=== PATIENT | female | born 1970 | race Caucasian/White ===

== ENCOUNTER 2019-02-23 17:02 | Emergency (ER) | payer MEDICAID ==
[~2019-02-23] VITALS: Ht 157.5 cm; Wt 91.0 kg
[2019-02-23 17:17] VITALS: BP 137/69
[2019-02-23] MEDS ORDERED: IBUPROFEN 200 MG TABLET ONE ×2 (17:56→17:57)
[2019-02-23] MEDS: IBUPROFEN 200 MG TABLET PO ONE (17:59)
--- NOTE | 2019-02-23 19:02 | NUR ---
BREAK RN: [facility] CALLED BACK IN [facility] TO CRUTCHES NEEDED FOR PT. AWAITING CRUTCHES FOR D/C.
== END 2019-02-23 19:31 | disposition home or self-care (01) ==
LOC: ED 19:25
DX: M19.071 Primary osteoarthritis, right ankle and foot (principal); M77.31 Calcaneal spur, right foot; F17.200 Nicotine dependence, unspecified, uncomplicated
CPT/HCPCS: 99283

== ENCOUNTER 2019-03-07 16:58 | Emergency (ER) | payer MEDICAID ==
[~2019-03-07] VITALS: Ht 157.5 cm; Wt 90.2 kg
[2019-03-07 17:26] VITALS: BP 150/83
[2019-03-07] MEDS ORDERED: KEPPRA (17:36)
[2019-03-07] MEDS ORDERED: DILANTIN (17:36)
--- NOTE | 2019-03-07 17:51 | NUR ---
Patient given discharge instructions and they have confirmed that they understand the instructions. Patient ambulatory with steady gait.
== END 2019-03-07 17:53 | disposition home or self-care (01) ==
LOC: ED 17:45
DX: Z02.89 Encounter for other administrative examinations (principal); M19.90 Unspecified osteoarthritis, unspecified site; F17.200 Nicotine dependence, unspecified, uncomplicated
CPT/HCPCS: 99281